=== PATIENT | female | born 1970 | race Caucasian/White ===

== ENCOUNTER 2022-03-01 10:41 | Emergency (ER) | payer OTHER, MEDICAID, SELFPAY ==
[2022-03-01 10:43] VITALS: BP 138/92; PULSE 92; RESP 14; TEMP 36.1; O2SAT 100; BMI 25.6
[2022-03-01 11:07] LABS: Add Manual Diff / Slide Review NO; Basophils Absolute Auto 0 /uL (0-100); Basophils Percent Auto 0.8 % (0-2); Eosinophils Absolute Auto 100 /uL (0-450); Eosinophils Percent Auto 2.2 % (2-4); Hematocrit 34.9 % (36-46); Hemoglobin 11.9 g/dL (12.0-16.0); Lymphocytes Absolute Auto 2200 /uL (1100-4500); Lymphocytes Percent Auto 44.8 % (25-40); Mean Corpuscular HGB Conc 34.2 % (30-36); Mean Corpuscular Hemoglobin 29.3 PG (26-34); Mean Corpuscular Volume 85.8 fL (80-100); Monocytes Absolute Auto 400 /uL (0-900); Monocytes Percent Auto 7.8 % (3-14); Neutrophils Absolute Auto 2200 /uL (1500-7000); Neutrophils Percent Auto 44.4 % (50-75); Platelet Count 255 X10^3/uL (150-400); Red Blood Cell Count 4.07 X10^6/uL (4.0-5.2); Red Cell Distribution Width 13.4 % (11.6-14.8); White Blood Cell Count 4.9 X10^3/uL (4.5-11.0)
[2022-03-01 11:15] LABS: Alanine Aminotransferase 20 IU/L (<35); Albumin 4.6 g/dL (3.5-5.0); Albumin Globulin Ratio 1.6 (1.0-2.8); Alkaline Phosphatase 55 U/L (38-126); Aspartate Aminotransferase 32 IU/L (14-36); BUN Creatinine Ratio 26.8 (6-22); Bilirubin Total 0.4 mg/dL (0.2-1.3); Blood Urea Nitrogen 19 mg/dL (7-17); Calcium 8.9 mg/dL (8.4-10.2); Carbon Dioxide 30 mmol/L (22-32); Chloride 103 mmol/L (98-107); Estimated Glomerular Filt Rate > 60 mL/min (>60); Globulin 2.9 g/dL (1.7-4.1); Glucose 95 mg/dL (70-100); HEMOLYSIS < 15 (0-50); Lipase 73 U/L (23-300); Sodium 137 mmol/L (137-145); Total Protein 7.5 g/dL (6.3-8.2)
[2022-03-01 13:40] VITALS: BP 140/81; PULSE 80; RESP 16; O2SAT 99
--- NOTE | 2022-03-01 13:42 | ED_ITS ---
HPI - Abdominal Pain General Chief Complaint: Abdominal Pain Stated Complaint: Diverticulitis getting worse Time Seen by Provider: 03/01/22 12:06 Source: patient Mode of arrival: Ambulatory History of Present Illness HPI narrative: 51-year-old female nonsmoker with history of fibromyalgia and diverticulitis presents for evaluation of worsening symptoms. She was seen and evaluated at an outside facility on January [address] consistent with diverticulitis in the absence of abscess or perforation. There was excellent shared decision-making and after lengthy discussion no antibiotics or other medications were prescribed. She presents today because she states her abdomen still has episodes of pain in various locations and she feels like she basically has not gotten much better. She denies any fever or chills and has no nausea or vomiting. She denies constipation or diarrhea but also complains of a very painful hemorrhoid that has not gotten better despite the use of hemorrhoid cream Related Data Previous Rx's Medication Instructions Recorded dicyclomine 20 mg tablet 20 mg PO TID PRN abdominal pain 03/01/22 #14 tabs hydrocortisone acetate 25 mg 25 mg ID BID #[id number] 03/01/22 rectal suppository (Anusol-HC) Allergies Allergy/AdvReac Type Severity Reaction Status Date / Time Sulfa (Sulfonamide Allergy Verified 03/01/22 10:48 Antibiotics) Review of Systems Review of Systems Narrative: GENERAL: Denies chills, fatigue, malaise, fever, sweats. HEENT: Denies sinus pain, ear pain, sore throat, difficulty swallowing, dizziness. RESPIRATORY: Denies dyspnea, cough, wheezing, hemoptysis, sputum. CARDIOVASCULAR: Denies chest pain, palpitations, orthopnea, edema, GASTROINTESTINAL: See HPI : Denies dysuria, frequency, incontinence, hematuria, urinary retention. MUSCULOSKELETAL: denies weakness, joint pain, or bony pain SKIN: Denies rash, skin lesions, or other NEUROLOGIC: Denies weakness, headache, numbness, change in speech, confusion, seizures, incoordination. PSYCHIATRIC: No concerning psychosocial issues. 12 point review of systems is negative except for those stated above Patient History Social History Smoking Status: Unknown if ever smoked Smoking Status: Unknown if ever smoked alcohol intake frequency: holidays/special occasions only Substance Use Type: does not use Exam Narrative Exam Narrative: GENERAL: [51] year old patient appears stated age. Well-developed patient, in mild distress. HEAD: Atraumatic. Normocephalic. EYES: Pupils equal round and reactive. Extraocular motions intact. No scleral icterus. No injection or drainage. ENT: Nose without bleeding, purulent drainage. Throat without erythema, tonsillar hypertrophy or exudate. Airway patent. NECK: Trachea midline. Non tender CARDIOVASCULAR: Regular rate and rhythm without murmurs, gallops, or rubs. RESPIRATORY: Clear to auscultation. Breath sounds equal bilaterally. No wheezes, rales, or rhonchi. GASTROINTESTINAL: Abdomen soft, mild tenderness generally, no rebound, nondistended. Bowel sounds present in all quadrants RECTAL: Moderate-sized soft external hemorrhoid without evidence of thrombosis or bleeding EXTREMITIES: No edema or joint tenderness. BACK: Nontender without deformity or crepitance. No flank tenderness. NEURO: AOx3. SKIN: No rash or erythema of visible areas Initial Vital Signs Initial Vital Signs: Vital Signs Temperature 97.0 F L 03/01/22 10:43 Pulse Rate 92 H 03/01/22 10:43 Respiratory Rate 14 03/01/22 10:43 Blood Pressure 138/92 H 03/01/22 10:43 Pulse Oximetry 100 03/01/22 10:43 Oxygen Delivery Method 03/01/22 10:43 Course Orders Ordered: ED Orders 03/01/22 10:47 EKG-12 Lead Stat 03/01/22 10:50 CRP [C-Reactive Protein Quant] Stat Complete Blood Count AUTO DIFF Stat Comprehensive Metabolic Panel Stat Lipase Stat Procalcitonin Stat 03/01/22 12:07 UA dip and micro [Urinalysis and Microscopic] Stat 03/01/22 13:52 CT abdomen pelvis w con Stat Vital Signs Vital signs: Vital Signs - 8 hr 03/01/22 10:43 03/01/22 13:40 03/01/22 13:52 Temperature 97.0 F L Pulse Rate 92 H 80 83 Respiratory Rate 14 16 Blood Pressure 138/92 H 140/81 Pulse Oximetry 100 99 100 Oxygen Delivery Method Room Air Room Air Room Air 03/01/22 15:02 Temperature Pulse Rate 84 Respiratory Rate 18 Blood Pressure 140/81 Pulse Oximetry 98 Oxygen Delivery Method MDM - Abdominal Pain Lab Data Result diagrams: 03/01/22 10:50 03/01/22 10:50 Labs: Lab Results 03/01/22 03/01/22 03/01/22 Range/Units 10:50 10:50 10:50 WBC 4.9 (4.5-11.0) X10^3/uL RBC 4.07 (4.0-5.2) X10^6/uL Hgb 11.9 L (12.0-16.0) g/dL Hct 34.9 L (36-46) % MCV 85.8 (80-100) fL MCH 29.3 (26-34) PG MCHC 34.2 (30-36) % RDW 13.4 (11.6-14.8) % Plt Count 255 (150-400) X10^3/uL Neut % (Auto) 44.4 L (50-75) % Lymph % (Auto) 44.8 H (25-40) % Patrick % (Auto) 7.8 (3-14) % Eos % (Auto) 2.2 (2-4) % Baso % (Auto) 0.8 (0-2) % Neut # (Auto) 2200 (0003-4929) /uL Lymph # (Auto) 2200 (7454-0422) /uL Patrick # (Auto) 400 (0-900) /uL Eos # (Auto) 100 (0-450) /uL Baso # (Auto) 0 (0-100) /uL Sodium 137 (137-145) mmol/L Potassium 4.0 (3.4-5.1) mmol/L Chloride 103 (98-107) mmol/L Carbon Dioxide 30 (22-32) mmol/L BUN 19 H (7-17) mg/dL Creatinine 0.71 (0.52-1.04) mg/dL Estimated GFR > 60 (>60) mL/min BUN/Creatinine Ratio 26.8 H (6-22) Glucose 95 (70-100) mg/dL Calcium 8.9 (8.4-10.2) mg/dL Total Bilirubin 0.4 (0.2-1.3) mg/dL AST 32 (14-36) IU/L ALT 20 (<35) IU/L Alkaline Phosphatase 55 (38-126) U/L C-Reactive Protein < 0.5 (<1.0) mg/dL Total Protein 7.5 (6.3-8.2) g/dL Albumin 4.6 (3.5-5.0) g/dL Globulin 2.9 (1.7-4.1) g/dL Albumin/Globulin Ratio 1.6 (1.0-2.8) Lipase 73 (23-300) U/L Procalcitonin 0.04 (<0.5) ng/mL Imaging Data CT scan - abdomen/pelvis: Radiologist's Impression: [address] [address] [address] Scan Report Signed Patient: Renata Olivo MR#: [id number] : 1970 Acct:[id number] Age/Sex: 51 / F Date of Service: 03/01/22 Loc: ED Accession Number: [id number] ?? Procedure: CT abdomen pelvis w con Ordering Provider: Feng Ac D.O. PROCEDURE:? CT ABDOMEN PELVIS W CON ? INDICATIONS:? severe lower abdominal pain, history of diverticulitis ? TECHNIQUE:? After the administration of IV contrast, axial sections were acquired from the lung bases to the pubic symphysis.? Coronal and sagittal reformats were performed.? For radiation dose reduction, the following was used:? automated exposure control, adjustment of mA and/or kV according to patient size. ? COMPARISON:? None. ? FINDINGS:? Image quality:? Excellent.? ? Lung bases:? Unremarkable.? ? Heart:? No significant findings. ? ? ABDOMEN: Liver:? Unremarkable.? ? Gallbladder:? Unremarkable.? ? Biliary ducts:? Unremarkable.? ? Pancreas:? Unremarkable.? ? Spleen:? Unremarkable.? ? Adrenal Glands:? Unremarkable.? ? Kidneys and Ureters:? Unremarkable.? ? ? Stomach and Bowel:? Stomach, small bowel loops, and colon are unremarkable.? A normal appendix is seen.? No focal right lower quadrant inflammatory changes are seen. Minimal distal colonic diverticula formation can be seen, without significant surrounding inflammatory change.? The distal colon is relatively decompressed. Peritoneum:? No abnormal intraperitoneal fluid.? No free air.? ? Ventral Wall: A mild periumbilical hernia is seen, containing fat. ? Abdominal Nodes:? No retroperitoneal or mesenteric adenopathy by size criteria.? Vessels:? Aorta and inferior vena cava are normal in size.? ? PELVIS: Pelvic Organs:? This patient is status post hysterectomy. No adnexal masses are seen.? Bladder:? Unremarkable.? ? Pelvic Nodes: No enlarged lymph nodes.? Miscellaneous: No inguinal hernias are seen. ? ? ? Bones:? Age-appropriate bony degenerative changes are seen.? ? ? IMPRESSION:? ? Distal colonic diverticulosis is seen, without ravindra findings of active diverticulitis. ? A normal appendix is seen. ? Incidental note is made of: Fat containing periumbilical hernia Hysterectomy ? Dictated by: Braeden Gilmore M.D. on 03/01/2022 at 13:44 ? ? Approved by: Braeden Gilmore M.D. on 03/01/2022 at 13:46? MDM Narrative Medical decision making narrative: Multiple etiologies for patient's symptoms considered include, but not limited to: [Bowel obstruction versus kidney stone versus diverticulitis versus other) Patient's symptoms improved over duration of stay with above-stated therapies. History, physical exam, labs, imaging, and response to therapies have been reassuring. Findings and discharge diagnosis discussed with patient/family followed by verbalization of understanding Return precautions discussed with patient/family whom verbalize understanding. Pain has been well controlled and patient is tolerating oral hydration. Discharge Plan Departure Patient Disposition: Home Clinical Impression: External hemorrhoid, Abdominal pain Instructions: DI for Hemorrhoids Activity Restrictions/Additional Instructions: *You have been diagnosed with [abdominal pain likely due to spasming after your diverticulitis, also painful external hemorrhoid without evidence of thrombosis] * As we discussed your history and physical exam as well as labs and imaging are very reassuring. There is no evidence of any significant intra-abdominal problems such as ongoing diverticulitis, abscess, bowel obstruction or other *What to do: *Please continue to take your regular medications as directed. [x ] New medication prescriptions sent to your pharmacy: [[facility]] *Please follow up with your primary care provider in 2-3 days, call for an appointment. Let them know you were seen in the Emergency Department and that we ask that you be seen in follow up. We will electronically transmit a record of today's note if your PCP is in our system *Please consider a clear liquid diet for the next 24-48 hours and then slowly advance to regular as tolerated. Also, try to avoid alcohol, nicotine, caffeine, spicy, acidic or fatty foods as this may worsen your symptoms * other [id number] options that we discussed would include being sure to stay well hydrated and consider a diet high in fiber so you do not strain on the toilet which will likely worsen your hemorrhoid. Sitz bath used daily can help, as can a hemorrhoid cushion *If you do not have a primary care provider please contact the [facility] Resource line at [phone]. They will ask some questions about your medical history and help get you set up with a doctor in the community. *Return to Emergency Department if you should have any new, worsening or concerning symptoms, such as [fever greater than 101 F, shaking chills, worsening pain, persistent vomiting or other bothersome symptoms] Prescriptions: New dicyclomine 20 mg tablet 20 mg PO TID PRN (Reason: abdominal pain) Qty: 14 0RF hydrocortisone acetate [Anusol-HC] 25 mg suppository 25 mg ID BID Qty: 24 0RF Referrals: Kristi Sinha MD [Physician] - Visit Report Forms: Patient Portal/API
[2022-03-01 13:52] VITALS: PULSE 83; O2SAT 100
--- NOTE | 2022-03-01 13:52 | DI.CT.S_ITS ---
PROCEDURE: CT ABDOMEN PELVIS W CON INDICATIONS: severe lower abdominal pain, history of diverticulitis TECHNIQUE: After the administration of IV contrast, axial sections were acquired from the lung bases to the pubic symphysis. Coronal and sagittal reformats were performed. For radiation dose reduction, the following was used: automated exposure control, adjustment of mA and/or kV according to patient size. COMPARISON: None. FINDINGS: Image quality: Excellent. Lung bases: Unremarkable. Heart: No significant findings. ABDOMEN: Liver: Unremarkable. Gallbladder: Unremarkable. Biliary ducts: Unremarkable. Pancreas: Unremarkable. Spleen: Unremarkable. Adrenal Glands: Unremarkable. Kidneys and Ureters: Unremarkable. Stomach and Bowel: Stomach, small bowel loops, and colon are unremarkable. A normal appendix is seen. No focal right lower quadrant inflammatory changes are seen. Minimal distal colonic diverticula formation can be seen, without significant surrounding inflammatory change. The distal colon is relatively decompressed. Peritoneum: No abnormal intraperitoneal fluid. No free air. Ventral Wall: A mild periumbilical hernia is seen, containing fat. Abdominal Nodes: No retroperitoneal or mesenteric adenopathy by size criteria. Vessels: Aorta and inferior vena cava are normal in size. PELVIS: Pelvic Organs: This patient is status post hysterectomy. No adnexal masses are seen. Bladder: Unremarkable. Pelvic Nodes: No enlarged lymph nodes. Miscellaneous: No inguinal hernias are seen. Bones: Age-appropriate bony degenerative changes are seen. IMPRESSION: Distal colonic diverticulosis is seen, without ravindra findings of active diverticulitis. A normal appendix is seen. Incidental note is made of: Fat containing periumbilical hernia Hysterectomy Dictated by: Braeden Gilmore M.D. on 03/01/2022 at 13:44 Approved by: Braeden Gilmore M.D. on 03/01/2022 at 13:46
[2022-03-01 14:42] LABS: C-Reactive Protein Quant < 0.5 mg/dL (<1.0)
[2022-03-01 14:56] LABS: Procalcitonin 0.04 ng/mL (<0.5)
[2022-03-01 15:02] VITALS: BP 140/81; PULSE 84; RESP 18; O2SAT 98
== END 2022-03-01 15:14 | disposition home or self-care (01) ==
PROVIDERS: Nurse Practitioner Critical Care Medicine; Emergency Provider Emergency Medicine
DX: K64.4 Residual hemorrhoidal skin tags (principal); R10.9 Unspecified abdominal pain
CPT/HCPCS: 74177; 80053; 83690; 84145; 85025; 86140; 99283; 99284